=== PATIENT | female | born 1985 | race Caucasian/White ===

== ENCOUNTER 2017-02-22 00:22 | Inpatient (IN) | payer OTHER ==
[2017-02-22] VITALS (8 sets, daily range): BP systolic 102–138; BP diastolic 60–83
[~2017-02-22] VITALS: Ht 160 cm; Wt 65.0 kg
[2017-02-22] MEDS ORDERED: LACTATED RINGERS 1,000 ML IV SCH (00:34)
[2017-02-22] MEDS ORDERED: NEWBORN KIT ONE (00:34)
[2017-02-22] MEDS ORDERED: OXYTOCIN 30U/ 0.9% NaCL 500ML 500 ML IV ONE (00:34)
[2017-02-22] MEDS ORDERED: D5%-LACTATED RINGERS 1,000 ML IV SCH (00:34)
[2017-02-22] MEDS ORDERED: OXYTOCIN 30U/ 0.9% NaCL 500ML 500 ML ONE (00:34)
[2017-02-22] MEDS ORDERED: LIDOCAINE 1%, 20ML ONE (00:39)
[2017-02-22] MEDS ORDERED: MISOPROSTOL 200 MCG TABLET ONE (00:39)
[2017-02-22] MEDS ORDERED: FENTANYL PF 100 MCG/2ML IVPush PRN (01:00)
[2017-02-22] MEDS ORDERED: ONDANSETRON 2MG/ML, 2ML IVPush PRN (01:00)
[2017-02-22] MEDS ORDERED: PENICILLIN GK 5,000,000 UNITS in DEXTROSE 5% 100 ML IVPB ONE (01:00)
[2017-02-22] MEDS ORDERED: CALCIUM CARBONATE 500 MG TAB.CHEW PO PRN ×2 (01:00→02:30)
[2017-02-22] MEDS ORDERED: ALUMINUM/MAG/SIMETHICONE 30 ML UDC PO PRN (01:00)
[2017-02-22] MEDS ORDERED: SODIUM CITRATE/CITRIC ACID 30 ML UDC PO PRN (01:00)
[2017-02-22] MEDS ORDERED: PENICILLIN GK 2,500,000 UNITS in DEXTROSE 5% 100 ML IVPB SCH (01:00)
[2017-02-22] MEDS ORDERED: FENTANYL PF 100 MCG/2ML IV PRN (01:00)
[2017-02-22] MEDS ORDERED: METOCLOPRAMIDE 5 MG/ML, 2ML IVPush PRN (01:00)
[2017-02-22] MEDS ORDERED: TERBUTALINE 1 MG/ML, 1ML IVPush PRN (01:00)
[2017-02-22] MEDS ORDERED: OXYTOCIN 30U/ 0.9% NaCL 500ML 500 ML IV SCH ×2 (02:09)
[2017-02-22] MEDS ORDERED: IBUPROFEN 600 MG TABLET PO PRN (02:30)
[2017-02-22] MEDS ORDERED: HYDROcodone/APAP 5/325 TABLET PO PRN ×2 (02:30)
[2017-02-22] MEDS ORDERED: BISACODYL 10 MG SUPP PR PRN (02:30)
[2017-02-22] MEDS ORDERED: MISOPROSTOL 200 MCG TABLET PR PRN (02:30)
[2017-02-22] MEDS ORDERED: DOCUSATE 100 MG CAPSULE PO PRN (02:30)
[2017-02-22] MEDS ORDERED: ONDANSETRON 2MG/ML, 2ML IV PRN (02:30)
[2017-02-22] MEDS ORDERED: ACETAMINOPHEN 325 MG TABLET PO PRN ×2 (02:30)
[2017-02-22] MEDS ORDERED: PRENATAL VIT/IRON/FA 1 EACH TABLET PO SCH (09:00)
[2017-02-23 07:57] VITALS: BP 110/70
[2017-02-23] MEDS ORDERED: IBUP-1222 PO (09:03)
== END 2017-02-23 10:10 | disposition home or self-care (01) | DRG 774 ==
LOC: LDOP 00:22 → LDIP 00:35 → 2NE 02:30 → 2NW 02:30
PROVIDERS: ADMIT Obstetrics & Gynecology; ATTEND Obstetrics & Gynecology
PROC: 10E0XZZ Delivery of Products of Conception, External Approach (ICD-10-PCS; principal; 2017-02-22)
PROC: 10907ZC Drainage of Amniotic Fluid, Therapeutic from Products of Conception, Via Natural or Artificial Opening (ICD-10-PCS; 2017-02-22)
PROC: 0HQ9XZZ Repair Perineum Skin, External Approach (ICD-10-PCS; 2017-02-22)
DX: O67.9 Intrapartum hemorrhage, unspecified (principal); O69.1XX0 Labor and delivery complicated by cord around neck, with compression, not applicable or unspecified; O71.82 Other specified trauma to perineum and vulva; O99.824 Streptococcus B carrier state complicating childbirth; Z37.0 Single live birth; Z3A.38 38 weeks gestation of pregnancy; Z82.49 Family history of ischemic heart disease and other diseases of the circulatory system
CPT/HCPCS: 36415; 85025; 86850; 86900; J2540; J2590; J7120

== ENCOUNTER 2020-07-14 04:57 | Outpatient (CLI) | payer OTHER ==
[~2020-07-14] VITALS: Ht 160 cm; Wt 69.1 kg
[~2020-07-14 04:57] MED LIST: IBUP-1222 PO
[2020-07-14 05:38] VITALS: BP 120/78
[2020-07-14] MEDS ORDERED: FLU VACC QS2020-21(6MOS UP)/PF 60MCG/0.5 ML SYR IM-VACC ONE (06:00)
[2020-07-15] MEDS ORDERED: IBUP-1222 PO (10:17)
[2020-07-15] MEDS ORDERED: DOCU-131 PO (10:17)
== END 2020-07-14 06:54 | disposition home or self-care (01) ==
LOC: LDOP 04:57
PROVIDERS: ATTEND Obstetrics & Gynecology
DX: O09.93 Supervision of high risk pregnancy, unspecified, third trimester (principal); O62.9 Abnormality of forces of labor, unspecified; Z3A.39 39 weeks gestation of pregnancy
CPT/HCPCS: 59025